=== PATIENT | female | born 1930 | race Caucasian/White ===

== ENCOUNTER 2017-06-30 17:00 | Emergency (ER) | payer MEDICARE, BC ==
[~2017-06-30] VITALS: Ht 162.6 cm; Wt 67.0 kg
[2017-06-30] MEDS ORDERED: ASPI-650 PO (17:24)
[2017-06-30] MEDS ORDERED: OMEP-110 PO (17:24)
[2017-06-30] MEDS ORDERED: DILT30TA33 PO (17:24)
[2017-06-30] MEDS ORDERED: OMNIPAQUE 350 MG/ML, 100ML BOTTLE ONE (17:50)
[2017-06-30 18:30] VITALS: BP 138/70
== END 2017-06-30 19:12 | disposition home or self-care (01) ==
LOC: ED 18:00
DX: R07.9 Chest pain, unspecified (principal)
CPT/HCPCS: 71275; 93005; 99284; Q9967